=== PATIENT | female | born 1970 | race Caucasian/White ===

== ENCOUNTER 2024-01-27 13:15 | Outpatient (CLI) | payer OTHER, SELFPAY ==
--- NOTE | 2024-01-27 13:23 | MRI_ITS ---
EXAM: MR HEAD WITHOUT AND WITH INTRAVENOUS CONTRAST, INTERNAL AUDITORY CANAL PROTOCOL CLINICAL INDICATION: ATAXIA, ATTN IAC, vertigo TECHNIQUE: Multiplanar and multisequence MR images of the brain and internal auditory canals were obtained without and with intravenous contrast. CONTRAST: IV CLARISCAN 14ML COMPARISON: No relevant prior studies available. FINDINGS: CRANIAL NERVES: No significant abnormality. No mass. No abnormal enhancement. COCHLEA AND SEMICIRCULAR CANALS: No significant abnormality. CEREBELLOPONTINE ANGLES: No significant abnormality. No mass. BRAIN AND EXTRA-AXIAL SPACES: Normal as visualized. No intra- or extra-axial hemorrhage. No intracranial mass or mass effect. There is preservation of the mcg[place]/white matter interface. Posterior fossa structures are unremarkable. Ventricles are appropriate for age. No hydrocephalus. Basal cisterns are patent. BONES/JOINTS: No significant abnormality. No discrete lytic or blastic abnormalities. SINUSES: Normal as visualized. Clear. MASTOID AIR CELLS: Normal as visualized. Clear. ORBITS: Normal as visualized. Both globes, extraocular muscles, optic nerves and retrobulbar fat appear unremarkable. MRI/Brain W/WO Contrast IMPRESSION: Unremarkable MRI of the brain and internal auditory canals. Electronically Signed: Johann Dacosta DO at 23:53 EDT ,
[2024-01-27 14:14] LABS: CREATININE FINGERSTICK < 1.0 mg/dL (0.55-1.02); EGFR FINGERSTICK > 60.0000 mL/min (>60)
== END 2024-01-27 23:59 | disposition home or self-care (01) ==
PROVIDERS: PCP Nurse Practitioner; Referring Provider Otolaryngology Otolaryngology/Facial Plastic Surgery; Visit Provider Otolaryngology Otolaryngology/Facial Plastic Surgery
DX: R27.0 Ataxia, unspecified (principal)
CPT/HCPCS: 70553; A9575